=== PATIENT | male | born 1975 | race Two or more races ===

== ENCOUNTER 2019-03-18 23:09 | Inpatient (IN) | payer OTHER ==
[~2019-03-18] VITALS: Ht 177.8 cm; Wt 73.0 kg
[~2019-03-18 23:09] MED LIST: ASACOR; CIPRO500 MG PO; FLAGYL375 MG; LEVSIN/SL0.125 MG SL; OMEPRAZOLE40 MG; ZOFRAN4 MG PO
[2019-03-18] MEDS ORDERED: FLAGYL500MG (23:25)
[2019-03-18] MEDS ORDERED: PRILOSEC OTC20 MG (23:25)
[2019-03-18] MEDS ORDERED: CIPRO500 MG (23:25)
[2019-03-24] MEDS ORDERED: CIPRO500 MG PO (14:47)
[2019-03-24] MEDS ORDERED: FLAGYL500MG PO (14:48)
[2019-03-24] MEDS ORDERED: INTESTINEX680 M1 PO (14:48)
[2019-03-24] MEDS ORDERED: OXYC1TAB9 PO (14:49)
[2019-03-24] MEDS ORDERED: DELTASONE20 MG PO (14:49)
== END 2019-03-24 18:41 | disposition home or self-care (01) | DRG 348 ==
LOC: ER 23:09 → SURH 03-19 10:19 → SURG 03-19 10:19 → SURH 03-22 17:17 → SURG 03-22 18:47
PROVIDERS: Surgery; ADMIT Internal Medicine Geriatric Medicine
PROC: BW21Y0Z Computerized Tomography (CT Scan) of Abdomen and Pelvis using Other Contrast, Unenhanced and Enhanced (ICD-10-PCS; 2019-03-19)
PROC: 3E0T3BZ Introduction of Anesthetic Agent into Peripheral Nerves and Plexi, Percutaneous Approach (ICD-10-PCS; 2019-03-23)
PROC: 0D9Q70Z Drainage of Anus with Drainage Device, Via Natural or Artificial Opening (ICD-10-PCS; principal; 2019-03-23 17:45)
DX: K50.014 Crohn's disease of small intestine with abscess (principal); K61.0 Anal abscess; N20.0 Calculus of kidney; I88.0 Nonspecific mesenteric lymphadenitis; B96.29 Other Escherichia coli [E. coli] as the cause of diseases classified elsewhere

== ENCOUNTER 2019-12-14 00:28 | Emergency (ER) | payer OTHER ==
[~2019-12-14] VITALS: Ht 177.8 cm; Wt 77.1 kg
[~2019-12-14 00:28] MED LIST changes: +CIPRO500 MG; +DELTASONE20 MG PO; +FLAGYL500MG; +FLAGYL500MG PO; +INTESTINEX680 M1 PO; +OXYC1TAB9 PO; +PRILOSEC OTC20 MG
[2019-12-14] MEDS ORDERED: CIPRO500 MG PO (15:42)
[2019-12-14] MEDS ORDERED: PEPCID AC20 MG PO (15:42)
== END 2019-12-14 16:05 | disposition home or self-care (01) ==
LOC: ER 00:28
DX: K50.10 Crohn's disease of large intestine without complications (principal); R10.32 Left lower quadrant pain

== ENCOUNTER 2021-01-24 22:59 | Inpatient (IN) | payer OTHER ==
[~2021-01-24] VITALS: Ht 177.8 cm; Wt 80.3 kg
[~2021-01-24 22:59] MED LIST changes: +PEPCID AC20 MG PO
[2021-01-26] MEDS ORDERED: ULTRAM50 MG PO (11:43)
[2021-01-26] MEDS ORDERED: AMOX-CLAV 875-1 EACH PO (11:44)
== END 2021-01-26 13:31 | disposition home or self-care (01) | DRG 345 ==
LOC: ER 22:59 → SURH 01-25 10:14
PROVIDERS: ADMIT Surgery; ATTEND Surgery
PROC: 3E0T3BZ Introduction of Anesthetic Agent into Peripheral Nerves and Plexi, Percutaneous Approach (ICD-10-PCS; 2021-01-25)
PROC: 0D9P0ZZ Drainage of Rectum, Open Approach (ICD-10-PCS; principal; 2021-01-25 12:00)
DX: K61.1 Rectal abscess (principal); K50.90 Crohn's disease, unspecified, without complications; K62.89 Other specified diseases of anus and rectum; D72.828 Other elevated white blood cell count; Z20.822 Contact with and (suspected) exposure to COVID-19

== ENCOUNTER 2024-07-21 08:07 | Emergency (ER) | payer OTHER ==
[~2024-07-21] VITALS: Ht 177.8 cm; Wt 75.7 kg
[~2024-07-21 08:07] MED LIST changes: +AMOX-CLAV 875-1 EACH PO; +ULTRAM50 MG PO
[2024-07-21 08:53] VITALS: BP 139/89; O2SAT 97
[2024-07-21] MEDS ORDERED: KETOROLAC TROMETHAMINE 60 MG VIAL IM ONE ×2 (09:07→09:15)
== END 2024-07-21 12:55 | disposition home or self-care (01) ==
LOC: ER 08:08
DX: R07.89 Other chest pain (principal)